=== PATIENT | female | born 1945 | race Caucasian/White ===

== ENCOUNTER 2021-08-18 09:49 | Outpatient (CLI) | payer MEDICARE, BC, OTHER | END 2021-08-18 09:50 | disposition home or self-care (01) | LOC: CSHMAMMO 09:49 | PROVIDERS: ATTEND Internal Medicine Hematology & Oncology | DX: Z13.820 Encounter for screening for osteoporosis (principal); R91.8 Other nonspecific abnormal finding of lung field; R93.7 Abnormal findings on diagnostic imaging of other parts of musculoskeletal system; M81.0 Age-related osteoporosis without current pathological fracture | CPT/HCPCS: 77080 ==